=== PATIENT | male | born 1980 | race Caucasian/White ===

== ENCOUNTER 2025-04-14 17:36 | Emergency (ER) | payer MEDICAID ==
[~2025-04-14] VITALS: Ht 177.8 cm; Wt 93.0 kg
[2025-04-14 17:37] VITALS: O2SAT 98
[2025-04-14] MEDS: HYDRALAZINE 20MG/ML VIAL IV ONE (19:20)
[2025-04-14 19:21] LABS: EOSINOPHILS % 3.6 % (0.0-5.0); HEMATOCRIT. 30.9 % (42.0-52.0); HEMOGLOBIN. 10.1 g/dL (14.0-18.0); LYMPHOCYTES % 8.5 % (20.0-50.0); MEAN CORPUSCULAR HEMOGLOBIN 27.4 pg (28.0-32.0); MEAN CORPUSCULAR HGB CONC 32.7 g/dL (31.0-37.0); MEAN CORPUSCULAR VOLUME 83.8 fL (80.0-94.0); MEAN PLATELET VOLUME 9.1 fl (7.4-10.4); MONOCYTES % 5.3 % (2.0-8.0); NEUTROPHILS % 81.6 % (40.0-76.0); PLATELET 210 x1000/uL (130-400); RED BLOOD CELL COUNT 3.69 mill/uL (4.7-6.1); RED CELL DISTRIBUTION WIDTH 18.2 % (11.6-14.6); WHITE BLOOD COUNT 10.1 x1000/uL (4.5-11.0)
[2025-04-14 19:30] LABS: CHLORIDE 103 mEq/L (98-107); POTASSIUM 4.4 mEq/L (3.5-5.1); SODIUM 135 mEq/L (136-145)
[2025-04-14] MEDS: FUROSEMIDE 40MG/4ML VIAL IV ONE (19:30)
[2025-04-14 19:31] LABS: CARBON DIOXIDE 21 mEq/L (21-32); INR 1.1; PROTHROMBIN TIME 11.6 sec (9.6-11.0)
[2025-04-14 19:32] LABS: CALCIUM 9.1 mg/dL (8.7-10.4)
[2025-04-14 19:36] LABS: GLUCOSE 109 mg/dL (70-105); UREA NITROGEN BLOOD 62 mg/dL (9-23)
[2025-04-14 19:37] LABS: TROPONIN I HIGH SENSITIVITY 41 ng/L (3.0-53)
[2025-04-14 19:38] LABS: ALANINE AMINOTRANSFERASE 23 IU/L (10-49); ALBUMIN 4.5 g/dL (3.2-4.8); ASPARTATE AMINOTRANSFERASE 17 IU/L (<34)
[2025-04-14 19:39] LABS: BILIRUBIN DIRECT 0.4 mg/dL (<=3.0); BILIRUBIN TOTAL 0.7 mg/dL (0.1-1.0); PROTEIN TOTAL 7.8 g/dL (6.0-8.3)
[2025-04-14 19:42] LABS: CREATININE 8.5 mg/dL (0.6-1.3)
[2025-04-14] MEDS: AMLODIPINE 10MG TABLET PO ONE (20:19)
[2025-04-14] MEDS: ISOSORBIDE MONONITRATE 30MG TABLET SR 24HR PO SCH (20:19)
[2025-04-14] MEDS: NITROGLYCERIN 0.4MG TABLET SL SL ONE (20:20)
[2025-04-14] MEDS ORDERED: HYDROCODONE/ACETAMINOPHEN 5/325MG TABLET PO PRN (20:25)
[2025-04-14] MEDS ORDERED: MORPHINE SULFATE 2 MG/ML INJ (NOT FOR IM USE) IV PRN (20:30)
[2025-04-14] MEDS ORDERED: LABETALOL 5MG/ML 4ML INJ IV NR (20:30)
[2025-04-14] MEDS ORDERED: CLONIDINE 0.1MG TABLET PO PRN (20:30)
[2025-04-14] MEDS ORDERED: ACETAMINOPHEN 325MG TABLET PO PRN (20:30)
[2025-04-14] MEDS: NIFEDIPINE XL 90MG TAB PO ONE (20:30)
[2025-04-14] MEDS ORDERED: ONDANSETRON HCL 4MG/2ML INJ IV PRN (20:30)
[2025-04-14] MEDS ORDERED: IPRATROPIUM/ALBUTEROL 0.5-3(2.5)MG/3ML NEB NEB PRN (20:30)
[2025-04-14] MEDS ORDERED: MAGNESIUM/ALUMINUM HYDROXIDE/SIMETHICONE 30ML UDC PO PRN (20:30)
[2025-04-14] MEDS ORDERED: ZOLPIDEM TARTRATE 5MG TABLET PO PRN (20:30)
[2025-04-14 20:48] VITALS: BP 243/140; PULSE 110; RESP 19; TEMP 36.7; O2SAT 100
[2025-04-15] MEDS ORDERED: PANTOPRAZOLE SODIUM 40 MG/VIAL IV SCH (09:00)
[2025-04-15] MEDS ORDERED: ENOXAPARIN 30MG/0.3ML SYR SUBCUT SCH (09:00)
== END 2025-04-14 20:59 | disposition left against medical advice (07) ==
LOC: ER 17:36 → EDBEDREQSVC 20:27 → EDBEDREQ 20:27 → EDBEDREQTM 20:27 → ER 20:59 → CANBEDREQ 21:03
DX: I13.2 Hypertensive heart and chronic kidney disease with heart failure and with stage 5 chronic kidney disease, or end stage renal disease (principal); I50.9 Heart failure, unspecified; E11.22 Type 2 diabetes mellitus with diabetic chronic kidney disease; N18.6 End stage renal disease; I16.0 Hypertensive urgency; F17.200 Nicotine dependence, unspecified, uncomplicated; Z86.73 Personal history of transient ischemic attack (TIA), and cerebral infarction without residual deficits; Z90.49 Acquired absence of other specified parts of digestive tract; Z99.2 Dependence on renal dialysis; Z79.899 Other long term (current) drug therapy
CPT/HCPCS: 80076; 80048; 83880; 85025; 85610; 84484; 36415; 71045; 93005; 96374; 99285; J1940; J0360